=== PATIENT | female | born 1990 | race Caucasian/White ===

== ENCOUNTER → 2016-09-07 09:12 | Outpatient (CLI) | payer MEDICAID | END | disposition home or self-care (01) | LOC: D.US 09:00 | DX: R10.13 Epigastric pain (principal) ==

== ENCOUNTER 2016-11-06 22:59 | Emergency (ER) | payer MEDICAID ==
[2016-11-06 23:30] LABS: BASOPHILS 0.3 % (0-2); EOSINOPHILS 1.6 % (0-7); HEMATOCRIT 44.5 % (36.0-48.0); HEMOGLOBIN 14.7 g/dL (12-16); IMMATURE GRANULOCYTES 0.2 % (0-5); LYMPHOCYTES 29.6 % (15-50); MCH 28.8 pg (26.0-34.0); MCV 87.3 fL (80.0-100.0); MEAN PLATELET VOLUME 10.7 fL (7.4-10.4); MONOCYTES 7.7 % (2-11); NEUTROPHILS 60.6 % (40-80); PLATELET COUNT 221 10x3/uL (130-400); RDW 13.3 % (11.5-14.5)
[2016-11-06 23:38] LABS: APPEARANCE HAZY (CLEAR); BILIRUBIN NEGATIVE (NEGATIVE); COLOR YELLOW (YELLOW); GLUCOSE NEGATIVE (NEGATIVE); KETONE NEGATIVE (NEGATIVE); LEUKOCYTE ESTERASE TRACE (NEGATIVE); NITRITE NEGATIVE (NEGATIVE); PROTEIN NEGATIVE (NEGATIVE); SPECIFIC GRAVITY 1.025 (1.005-1.020); UROBILINOGEN NORMAL (NORMAL)
[2016-11-06 23:45] LABS: ALKALINE PHOSPHATASE 89 U/L (46-116); ALT (SGPT) 23 U/L (10-68); BILIRUBIN - TOTAL 0.33 mg/dL (0.2-1.3); CALC OSMOLALITY 277 mosm/kg (275-300); CALCIUM 9.1 mg/dL (8.5-10.1); CARBON DIOXIDE 29.9 mmol/L (21.0-32.0); CHLORIDE - SERUM 104 mmol/L (98-107); CREATININE - SERUM 0.9 mg/dL (0.6-1.3); GLUCOSE 95 mg/dL (74-106); POTASSIUM - SERUM 3.9 mmol/L (3.5-5.1); PROTEIN - SERUM 7.7 g/dL (6.4-8.2); SODIUM 139 mmol/L (136-145); UREA NITROGEN 12 mg/dL (7-18); eGFR NON AFRICAN AMERICAN 79 mL/min (90-120)
[2016-11-06 23:46] LABS: HCG SERUM NEGATIVE (NEGATIVE)
[2016-11-06 23:54] LABS: BACTERIA MANY /hpf (NONE SEEN); EPITHELIAL CELLS 0-5 /hpf (0-5); RED CELLS - URINE >50 /hpf (0-5)
== END 2016-11-07 01:40 | disposition home or self-care (01) ==
LOC: D.ER 22:59
PROVIDERS: Family Medicine
DX: N20.1 Calculus of ureter (principal)

== ENCOUNTER 2017-06-05 14:21 | Emergency (ER) | payer MEDICAID ==
[2017-06-05 17:08] LABS: HCG SERUM NEGATIVE (NEGATIVE)
[2017-06-05 17:23] LABS: ALBUMIN 4.2 g/dL (3.4-5.0); ALKALINE PHOSPHATASE 77 U/L (46-116); ALT (SGPT) 27 U/L (10-68); BILIRUBIN - TOTAL 0.53 mg/dL (0.2-1.3); CALCIUM 9.7 mg/dL (8.5-10.1); CREATININE - SERUM 0.6 mg/dL (0.6-1.3); GLUCOSE 82 mg/dL (74-106); PROTEIN - SERUM 7.8 g/dL (6.4-8.2); UREA NITROGEN 9 mg/dL (7-18); eGFR NON AFRICAN AMERICAN > 90 mL/min (90-120)
[2017-06-05 17:43] LABS: CALC OSMOLALITY 293 mosm/kg (275-300); CHLORIDE - SERUM 108 mmol/L (98-107); POTASSIUM - SERUM 4.9 mmol/L (3.5-5.1); SODIUM 149 mmol/L (136-145)
[2017-06-05 17:43] LABS: APPEARANCE CLEAR (CLEAR); BILIRUBIN NEGATIVE (NEGATIVE); COLOR YELLOW (YELLOW); GLUCOSE NEGATIVE (NEGATIVE); KETONE NEGATIVE (NEGATIVE); NITRITE NEGATIVE (NEGATIVE); PROTEIN NEGATIVE (NEGATIVE); SPECIFIC GRAVITY 1.025 (1.005-1.020); UROBILINOGEN NORMAL (NORMAL)
[2017-06-05 17:44] LABS: CARBON DIOXIDE 22.7 mmol/L (21.0-32.0)
[2017-06-05 17:44] LABS: EPITHELIAL CELLS 0-5 /hpf (0-5); RED CELLS - URINE 0-5 /hpf (0-5); WHITE CELLS - URINE 0-5 /hpf (0-5)
[2017-06-05 17:45] LABS: BACTERIA MODERATE /hpf (NONE SEEN)
[2017-06-05 18:13] LABS: BASOPHILS 0.3 % (0-2); HEMOGLOBIN 14.3 g/dL (12-16); IMMATURE GRANULOCYTES 0.2 % (0-5); LYMPHOCYTES 28.1 % (15-50); MCH 28.9 pg (26.0-34.0); MCHC 33.3 g/dL (31.0-37.0); MEAN PLATELET VOLUME 10.6 fL (7.4-10.4); MONOCYTES 6.3 % (2-11); NEUTROPHILS 64.1 % (40-80); PLATELET COUNT 201 10x3/uL (130-400); RBC 4.94 10x6/uL (4.00-5.40); RDW 13.5 % (11.5-14.5); WBC 9.6 10x3/uL (4.8-10.8)
[2017-06-05 18:27] LABS: LIPASE 118 U/L (73-393)
== END 2017-06-05 19:30 | disposition home or self-care (01) ==
LOC: D.ER 14:21
PROVIDERS: Physician Assistant
DX: K52.9 Noninfective gastroenteritis and colitis, unspecified (principal)

== ENCOUNTER 2017-09-10 14:12 | Emergency (ER) | payer MEDICAID ==
[2017-09-10 15:08] LABS: APPEARANCE CLEAR (CLEAR); BILIRUBIN NEGATIVE (NEGATIVE); COLOR YELLOW (YELLOW); EPITHELIAL CELLS 0-5 /hpf (0-5); GLUCOSE NEGATIVE (NEGATIVE); KETONE NEGATIVE (NEGATIVE); NITRITE NEGATIVE (NEGATIVE); PROTEIN NEGATIVE (NEGATIVE); RED CELLS - URINE NONE SEEN /hpf (0-5); UROBILINOGEN NORMAL (NORMAL); WHITE CELLS - URINE 0-5 /hpf (0-5)
== END 2017-09-10 16:53 | disposition home or self-care (01) ==
LOC: D.ER 14:12
PROVIDERS: Family Medicine
DX: M54.5 Low back pain (principal); N39.0 Urinary tract infection, site not specified

== ENCOUNTER 2019-09-30 13:08 | Emergency (ER) | payer BC ==
[~2019-09-30] VITALS: Ht 170.2 cm; Wt 159.1 kg
[2019-09-30 13:13] VITALS: Ht 170.2 cm; Wt 159.1 kg
[2019-09-30] MEDS ORDERED: PROTONIX20 MG PO (13:15)
[2019-09-30] MEDS ORDERED: EFFEXOR XR75 MG PO (13:15)
[2019-09-30 13:43] LABS: HCG URINE NEGATIVE (NEGATIVE)
[2019-09-30 13:53] LABS: BACTERIA MODERATE /hpf (NEGATIVE); BILIRUBIN NEGATIVE (NEGATIVE); EPITHELIAL CELLS 0-5 /hpf (0-5); GLUCOSE NEGATIVE (NEGATIVE); KETONE NEGATIVE (NEGATIVE); NITRITE NEGATIVE (NEGATIVE); RED CELLS - URINE 0-5 /hpf (0-5); SPECIFIC GRAVITY 1.025 (1.005-1.020); UROBILINOGEN NORMAL (NORMAL); WHITE CELLS - URINE 0-5 /hpf (NEGATIVE)
[2019-09-30 13:57] LABS: HEMATOCRIT 43.6 % (36.0-48.0); HEMOGLOBIN 14.4 g/dL (12-16); LYMPHOCYTES 18.6 % (15-50); MCH 27.2 pg (26.0-34.0); MCV 82.4 fL (80.0-100.0); NEUTROPHILS 76.7 % (40-80); RBC 5.29 10x6/uL (4.00-5.40); RDW 13.9 % (11.5-14.5)
[2019-09-30 14:05] LABS: CALC OSMOLALITY 277 mosm/kg (275-300); CALCIUM 9.5 mg/dL (8.5-10.1); CARBON DIOXIDE 22.1 mmol/L (21.0-32.0); CHLORIDE - SERUM 104 mmol/L (98-107); CREATININE - SERUM 0.9 mg/dL (0.6-1.3); GLUCOSE 103 mg/dL (74-106); SODIUM 139 mmol/L (136-145); UREA NITROGEN 13 mg/dL (7-18); eGFR NON AFRICAN AMERICAN 77 mL/min (90-120)
[2019-09-30 14:11] LABS: PLATELET COUNT 280 10x3/uL (130-400)
[2019-09-30 14:14] LABS: ALBUMIN 4.1 g/dL (3.4-5.0); ALKALINE PHOSPHATASE 96 U/L (30-120); ALT (SGPT) 31 U/L (10-68); AMYLASE - SERUM 36 U/L (25-115); BILIRUBIN - TOTAL 0.34 mg/dL (0.2-1.3); LIPASE 103 U/L (73-393); PROTEIN - SERUM 7.6 g/dL (6.4-8.2)
[2019-09-30 14:17] LABS: TROPONIN-I < 0.017 ng/mL (0.000-0.060)
[2019-09-30 14:43] LABS: HCG SERUM NEGATIVE (NEGATIVE)
[2019-09-30] MEDS ORDERED: PROMETHAZINE W473 ML PO (15:24)
[2019-09-30] MEDS ORDERED: MACROBID100 MG PO (15:24)
[2019-09-30 16:00] VITALS: BP 129/83
== END 2019-09-30 16:09 | disposition home or self-care (01) ==
LOC: D.ER 13:08
PROVIDERS: Family Medicine
DX: N39.0 Urinary tract infection, site not specified (principal); K21.9 Gastro-esophageal reflux disease without esophagitis; R10.9 Unspecified abdominal pain

== ENCOUNTER 2020-01-21 15:34 | Emergency (ER) | payer OTHER ==
[2019-09-30 13:13] VITALS: Ht 170.2 cm; Wt 164.1 kg
[~2020-01-21] VITALS: Ht 170.2 cm; Wt 164.1 kg
[~2020-01-21 15:34] MED LIST: EFFEXOR XR75 MG PO; MACROBID100 MG PO; PROMETHAZINE W473 ML PO; PROTONIX20 MG PO
[2020-01-21] MEDS ORDERED: NORVASC5 MG PO (15:41)
[2020-01-21] MEDS ORDERED: ADIPEX-P37.5 MG PO (15:41)
[2020-01-21 16:24] LABS: HEMATOCRIT 43.3 % (36.0-48.0); HEMOGLOBIN 14.3 g/dL (12-16); MCH 27.3 pg (26.0-34.0); MCV 82.8 fL (80.0-100.0); MEAN PLATELET VOLUME 10.1 fL (7.4-10.4); PLATELET COUNT 241 10x3/uL (130-400); RBC 5.23 10x6/uL (4.00-5.40); RDW 14.3 % (11.5-14.5); WBC 8.8 10x3/uL (4.8-10.8)
[2020-01-21 16:35] LABS: CALC OSMOLALITY 274 mosm/kg (275-300); CALCIUM 8.9 mg/dL (8.5-10.1); CARBON DIOXIDE 25.6 mmol/L (21.0-32.0); CHLORIDE - SERUM 104 mmol/L (98-107); CREATININE - SERUM 0.8 mg/dL (0.6-1.3); GLUCOSE 122 mg/dL (74-106); HCG SERUM NEGATIVE (NEGATIVE); POTASSIUM - SERUM 3.7 mmol/L (3.5-5.1); SODIUM 137 mmol/L (136-145); UREA NITROGEN 13 mg/dL (7-18); eGFR NON AFRICAN AMERICAN 88 mL/min (90-120)
[2020-01-21 16:50] LABS: ALKALINE PHOSPHATASE 80 U/L (30-120); ALT (SGPT) 44 U/L (10-68); BILIRUBIN - TOTAL 0.43 mg/dL (0.2-1.3); CKMB 0.5 U/L (0.0-3.6); CREATINE KINASE 56 UL (21-215); MAGNESIUM - SERUM 1.8 mg/dL (1.8-2.4); PROTEIN - SERUM 7.5 g/dL (6.4-8.2)
[2020-01-21 16:51] LABS: TROPONIN-I < 0.017 ng/mL (0.000-0.060)
[2020-01-21 17:12] LABS: BILIRUBIN NEGATIVE (NEGATIVE); GLUCOSE NEGATIVE (NEGATIVE); KETONE MODERATE mg/dL (NEGATIVE); NITRITE NEGATIVE (NEGATIVE); SPECIFIC GRAVITY 1.025 (1.005-1.020); UROBILINOGEN NORMAL (NORMAL)
[2020-01-21 17:13] LABS: BACTERIA MODERATE /hpf (NEGATIVE); EPITHELIAL CELLS 0-5 /hpf (0-5); RED CELLS - URINE 0-5 /hpf (0-5); WHITE CELLS - URINE 0-5 /hpf (NEGATIVE)
[2020-01-21] MEDS ORDERED: ZOFRAN ODT4 MG/UDTAB PO (18:06)
[2020-01-21] MEDS ORDERED: MECLIZINE HCL25 MG PO (18:06)
[2020-01-21 18:19] VITALS: BP 156/92
== END 2020-01-21 18:20 | disposition home or self-care (01) ==
LOC: D.ER 15:34
PROVIDERS: Family Medicine
DX: R42 Dizziness and giddiness (principal); E86.0 Dehydration; K21.9 Gastro-esophageal reflux disease without esophagitis; R11.2 Nausea with vomiting, unspecified